=== PATIENT | male | born 1975 | race Two or more races ===

== ENCOUNTER → 2017-12-14 | Outpatient (CLI) | payer OTHER ==
--- NOTE | 2017-12-14 08:32 | RAD ---
Examination: Ultrasound abdomen limited HISTORY: History of abnormal liver function tests COMPARISON: None available FINDINGS: There is increased echogenicity noted throughout the liver. The liver measures 19.6 cm. The pancreas is not well-visualized. The right kidney is 11.5 cm. No evidence of gallstones. The gallbladder is mildly distended. The IVC is poorly visualized. Common bile duct measures 2.9 mm in transverse dimension. IMPRESSION: 1. Hepatomegaly with hepatic steatosis. 2. No evidence of gallstones. Electronically signed by: Roshan Hager MD (12/14/2017 8:29 AM) [id number]
== END | disposition home or self-care (01) ==
LOC: US 06:32
PROVIDERS: ATTEND Family Medicine
DX: K76.0 Fatty (change of) liver, not elsewhere classified (principal); R16.0 Hepatomegaly, not elsewhere classified; K82.8 Other specified diseases of gallbladder
CPT/HCPCS: 76705